=== PATIENT | male | born 1980 | race Caucasian/White ===

== ENCOUNTER 2021-12-20 19:43 | Emergency (ER) | payer BC ==
[~2021-12-20] VITALS: Ht 180.3 cm; Wt 136.1 kg
[2021-12-20 19:49] VITALS: BP_SYST 184
[2021-12-20] MEDS ORDERED: cefTRIAXone 1 GM in LIDOCAINE 1%, 20 ML MDV 2.1 ML IM ONE (22:30)
[2021-12-20] MEDS ORDERED: CEPH-548 PO (22:39)
[2021-12-20] MEDS ORDERED: LISINOPRIL 10 MG TABLET (PRINIVIL) PO ONE (23:00)
[2021-12-20] MEDS ORDERED: LISI1TAB57 PO (23:29)
[2021-12-20 23:41] VITALS: BP_SYST 161
== END 2021-12-20 23:41 | disposition home or self-care (01) ==
LOC: SED 19:43
DX: L03.115 Cellulitis of right lower limb (principal); M79.671 Pain in right foot; I10 Essential (primary) hypertension; Z79.899 Other long term (current) drug therapy
CPT/HCPCS: 99283; 73630; 96372; J0696; J2001